=== PATIENT | female | born 1955 | race Caucasian/White ===

== ENCOUNTER 2017-11-25 07:41 | Outpatient (CLI) | payer OTHER ==
[~2017-11-25 07:41] MED LIST: AURALGAN OTIC S14 ML OT; COLACE100 MG PO; LEVSIN/SL0.125 MG PO; PROTONIX40 MG PO; XANAX1 MG PO
== END 2017-11-25 09:30 | disposition home or self-care (01) ==
LOC: LAB 07:41
DX: D50.9 Iron deficiency anemia, unspecified (principal); E03.9 Hypothyroidism, unspecified; E78.2 Mixed hyperlipidemia; I11.9 Hypertensive heart disease without heart failure; E56.8 Deficiency of other vitamins; N39.0 Urinary tract infection, site not specified; Z12.11 Encounter for screening for malignant neoplasm of colon; R19.5 Other fecal abnormalities; E55.9 Vitamin D deficiency, unspecified; N19 Unspecified kidney failure; E11.9 Type 2 diabetes mellitus without complications; R80.9 Proteinuria, unspecified; C18.0 Malignant neoplasm of cecum

== ENCOUNTER 2018-01-13 09:13 | Emergency (ER) | payer OTHER ==
[~2018-01-13] VITALS: Ht 152.4 cm; Wt 68.0 kg
== END 2018-01-13 12:32 | disposition home or self-care (01) ==
LOC: ER 09:13
DX: J02.9 Acute pharyngitis, unspecified (principal); B34.9 Viral infection, unspecified

== ENCOUNTER 2018-07-06 07:33 | Outpatient (CLI) | payer OTHER | END 2018-07-06 07:40 | disposition home or self-care (01) | LOC: LAB 07:33 | DX: D50.8 Other iron deficiency anemias (principal); E03.8 Other specified hypothyroidism; E78.2 Mixed hyperlipidemia; I11.9 Hypertensive heart disease without heart failure; E56.8 Deficiency of other vitamins; N39.0 Urinary tract infection, site not specified; Z12.11 Encounter for screening for malignant neoplasm of colon; R19.5 Other fecal abnormalities; E55.9 Vitamin D deficiency, unspecified; N19 Unspecified kidney failure; E11.9 Type 2 diabetes mellitus without complications; R80.8 Other proteinuria; K92.1 Melena; R82.79 Other abnormal findings on microbiological examination of urine ==

== ENCOUNTER 2018-10-25 07:54 | Outpatient (CLI) | payer OTHER | END 2018-10-25 07:59 | disposition home or self-care (01) | LOC: LAB 07:54 | DX: E78.2 Mixed hyperlipidemia (principal) ==

== ENCOUNTER → 2018-10-30 | Outpatient (CLI) | payer OTHER | END | disposition home or self-care (01) | LOC: NUCLEAR 07:00 | DX: E78.2 Mixed hyperlipidemia (principal); E11.9 Type 2 diabetes mellitus without complications; I11.9 Hypertensive heart disease without heart failure ==

== ENCOUNTER 2018-11-11 09:16 | Outpatient (CLI) | payer OTHER | END 2018-11-11 09:24 | disposition home or self-care (01) | LOC: LAB 09:16 | DX: D50.8 Other iron deficiency anemias (principal); E03.8 Other specified hypothyroidism; E78.2 Mixed hyperlipidemia; I11.9 Hypertensive heart disease without heart failure; E56.8 Deficiency of other vitamins; N39.0 Urinary tract infection, site not specified; Z12.11 Encounter for screening for malignant neoplasm of colon; R19.5 Other fecal abnormalities; E55.9 Vitamin D deficiency, unspecified; N19 Unspecified kidney failure; E11.9 Type 2 diabetes mellitus without complications; R80.8 Other proteinuria; C18.0 Malignant neoplasm of cecum; K92.1 Melena; B99.8 Other infectious disease ==

== ENCOUNTER 2019-02-25 12:58 | Outpatient (CLI) | payer OTHER | END 2019-02-25 13:07 | disposition home or self-care (01) | LOC: LAB 12:58 | DX: N28.89 Other specified disorders of kidney and ureter (principal) ==

== ENCOUNTER 2019-03-19 07:14 | Outpatient (CLI) | payer OTHER | END 2019-03-19 07:20 | disposition home or self-care (01) | LOC: LAB 07:14 | DX: D50.8 Other iron deficiency anemias (principal); E03.8 Other specified hypothyroidism; E78.2 Mixed hyperlipidemia; I11.9 Hypertensive heart disease without heart failure; E56.8 Deficiency of other vitamins; N39.0 Urinary tract infection, site not specified; Z12.11 Encounter for screening for malignant neoplasm of colon; E55.9 Vitamin D deficiency, unspecified; N19 Unspecified kidney failure; E11.9 Type 2 diabetes mellitus without complications; R80.8 Other proteinuria; C18.0 Malignant neoplasm of cecum; K92.1 Melena ==

== ENCOUNTER → 2019-08-05 07:41 | Outpatient (CLI) | payer OTHER | END | disposition home or self-care (01) | LOC: LAB 07:41 | DX: D50.8 Other iron deficiency anemias (principal); E03.8 Other specified hypothyroidism; E78.2 Mixed hyperlipidemia; I11.9 Hypertensive heart disease without heart failure; E56.8 Deficiency of other vitamins; N39.0 Urinary tract infection, site not specified; Z12.11 Encounter for screening for malignant neoplasm of colon; E55.9 Vitamin D deficiency, unspecified; N19 Unspecified kidney failure; E11.9 Type 2 diabetes mellitus without complications; R80.8 Other proteinuria; C18.0 Malignant neoplasm of cecum; K92.1 Melena ==

== ENCOUNTER → 2020-02-24 07:39 | Outpatient (CLI) | payer OTHER | END | disposition home or self-care (01) | LOC: LAB 07:39 | DX: B18.8 Other chronic viral hepatitis (principal); R76.8 Other specified abnormal immunological findings in serum; Z11.4 Encounter for screening for human immunodeficiency virus [HIV]; E78.01 Familial hypercholesterolemia; I10 Essential (primary) hypertension; D63.8 Anemia in other chronic diseases classified elsewhere; L40.0 Psoriasis vulgaris ==

== ENCOUNTER 2020-05-11 08:08 | Outpatient (CLI) | payer OTHER | END 2020-05-11 15:00 | disposition home or self-care (01) | LOC: LAB 08:08 | PROVIDERS: ATTEND Internal Medicine Geriatric Medicine | DX: D50.8 Other iron deficiency anemias (principal); E03.8 Other specified hypothyroidism; E78.2 Mixed hyperlipidemia; I11.9 Hypertensive heart disease without heart failure; E56.8 Deficiency of other vitamins; N39.0 Urinary tract infection, site not specified; Z12.11 Encounter for screening for malignant neoplasm of colon; E55.9 Vitamin D deficiency, unspecified; N19 Unspecified kidney failure; E11.9 Type 2 diabetes mellitus without complications; R80.8 Other proteinuria; C18.0 Malignant neoplasm of cecum; K92.1 Melena ==

== ENCOUNTER 2020-07-04 13:01 | Emergency (ER) | payer OTHER ==
[~2020-07-04] VITALS: Ht 152.4 cm; Wt 70.3 kg
[2020-07-04] MEDS ORDERED: AVAPRO75 MG (13:25)
[2020-07-04] MEDS ORDERED: DIALYVITE 800-1 EACH (13:26)
[2020-07-04] MEDS ORDERED: CRESTOR5 MG (13:26)
[2020-07-04] MEDS ORDERED: METHOTREXATE2.5 MG (13:26)
== END 2020-07-04 19:23 | disposition home or self-care (01) ==
LOC: ER 13:01
DX: K29.60 Other gastritis without bleeding (principal); Z03.818 Encounter for observation for suspected exposure to other biological agents ruled out; R07.89 Other chest pain

== ENCOUNTER → 2021-06-07 08:18 | Outpatient (CLI) | payer OTHER ==
[~2021-06-07 08:18] MED LIST changes: +AVAPRO75 MG; +CRESTOR5 MG; +DIALYVITE 800-1 EACH; +METHOTREXATE2.5 MG
== END | disposition home or self-care (01) ==
LOC: LAB 08:18
PROVIDERS: ATTEND Internal Medicine
DX: D50.8 Other iron deficiency anemias (principal); E11.9 Type 2 diabetes mellitus without complications; E78.2 Mixed hyperlipidemia; E03.8 Other specified hypothyroidism; E55.9 Vitamin D deficiency, unspecified; R19.5 Other fecal abnormalities

== ENCOUNTER 2021-08-02 15:35 | Outpatient (CLI) | payer OTHER | END 2021-08-02 15:45 | disposition home or self-care (01) | LOC: PPH VACUNA 15:35 | PROVIDERS: ATTEND Emergency Medicine Pediatric Emergency Medicine | DX: Z23 Encounter for immunization (principal) ==

== ENCOUNTER 2021-10-15 07:21 | Outpatient (CLI) | payer OTHER | END 2021-10-15 15:00 | disposition home or self-care (01) | LOC: LAB 07:21 | PROVIDERS: ATTEND Internal Medicine | DX: D50.0 Iron deficiency anemia secondary to blood loss (chronic) (principal); E11.9 Type 2 diabetes mellitus without complications; E78.2 Mixed hyperlipidemia; E03.8 Other specified hypothyroidism; E55.9 Vitamin D deficiency, unspecified; N39.0 Urinary tract infection, site not specified; R19.5 Other fecal abnormalities ==

== ENCOUNTER 2021-11-23 08:00 | Outpatient (CLI) | payer OTHER | END 2021-11-23 08:11 | disposition home or self-care (01) | LOC: LAB 08:00 | PROVIDERS: ATTEND Obstetrics & Gynecology | DX: N95.2 Postmenopausal atrophic vaginitis (principal); E03.9 Hypothyroidism, unspecified; E55.9 Vitamin D deficiency, unspecified; R73.9 Hyperglycemia, unspecified; E78.9 Disorder of lipoprotein metabolism, unspecified; D64.9 Anemia, unspecified; N39.0 Urinary tract infection, site not specified; R19.09 Other intra-abdominal and pelvic swelling, mass and lump; R97.8 Other abnormal tumor markers ==

== ENCOUNTER 2022-03-14 14:20 | Outpatient (CLI) | payer OTHER | END 2022-03-14 14:35 | disposition home or self-care (01) | LOC: PPH VACUNA 14:20 | PROVIDERS: ATTEND Emergency Medicine Pediatric Emergency Medicine | DX: Z23 Encounter for immunization (principal) ==

== ENCOUNTER 2022-08-19 07:10 | Outpatient (CLI) | payer OTHER | END 2022-08-19 07:12 | disposition home or self-care (01) | LOC: LAB 07:10 | PROVIDERS: ATTEND Internal Medicine | DX: D50.9 Iron deficiency anemia, unspecified (principal); E11.9 Type 2 diabetes mellitus without complications; E78.2 Mixed hyperlipidemia; R94.8 Abnormal results of function studies of other organs and systems; N39.0 Urinary tract infection, site not specified; D64.9 Anemia, unspecified; I10 Essential (primary) hypertension; E03.8 Other specified hypothyroidism ==

== ENCOUNTER 2023-01-18 | Outpatient (CLI) | payer OTHER | END 2023-01-18 00:15 | disposition home or self-care (01) | LOC: PPH VACUNA | PROVIDERS: ATTEND Internal Medicine | DX: Z23 Encounter for immunization (principal) ==

== ENCOUNTER 2025-06-03 08:39 | Outpatient (CLI) | payer OTHER | END 2025-06-03 08:41 | disposition home or self-care (01) | LOC: NUCLEAR 08:39 | PROVIDERS: ATTEND Internal Medicine | DX: R42 Dizziness and giddiness (principal); I11.9 Hypertensive heart disease without heart failure; I65.22 Occlusion and stenosis of left carotid artery ==